=== PATIENT | female | born 1960 | race Caucasian/White ===

== ENCOUNTER 2020-08-14 07:20 | Day surgery (SDC) | payer MEDICARE, MEDICAID, SELFPAY ==
[2020-08-08 14:08] VITALS: BMI 48.5
--- NOTE | 2020-08-11 07:24 | HO.ANESPROP2 ---
Documented by User: Mavis Key 08/11/20 07:25 HPI - Anesthesia Eval Consult details Narrative: 60yo F for Colonoscopy xarelto for afib PMFSH Past Medical History Medical History Arrhythmia Arthritis COPD (chronic obstructive pulmonary disease) Depression DVT (deep venous thrombosis) Elevated cholesterol GERD (gastroesophageal reflux disease) History of cardioversion HTN (hypertension) Mild cervical atypia On anticoagulant therapy Pulmonary embolism Sleep apnea Thyroid disease Surgical History Surgical History History of bladder suspension procedure History of bunionectomy History of esophagogastroduodenoscopy (EGD) Hx of laparoscopy Hx of tonsillectomy Social History Social History Are you a primary respiratory care assistant to a significant other at home: No Do you presently have visiting nurse or other home services: No Smoking Status: Current every day smoker Cigarettes Per Day: 3 Years Smoked: 45 Smoked in Last 30 Days: Yes Use of substances other than those prescribed or required for medical reasons: No Have you been hit, kicked, punched, or otherwise hurt by someone within the past year? If so, by whom?: No Advance Directives Information Provided: No Recently lost weight without trying: No Meds Allergies Allergy/AdvReac Type Severity Reaction Status Date / Time latex Allergy Intermediate Itching Verified 08/08/20 14:17 codeine Allergy Unknown Unknown Verified 08/08/20 14:17 Iodinated Contrast Media Allergy Unknown Unknown Verified 08/08/20 14:17 [IV Contrast Dye] Home Medications Medication Instructions Recorded Confirmed Last Taken Type atorvastatin 1 tab PO BEDTIME 08/08/20 08/08/20 Unknown History cholecalciferol (vitamin D3) 25 mcg PO DAILY 08/08/20 08/08/20 Unknown History [Vitamin D3] diltiazem HCl 1 cap PO DAILY 08/08/20 08/08/20 08/14/20 04:30 History esomeprazole magnesium [Nexium] 20 mg PO BEDTIME 08/08/20 08/08/20 Unknown History fluoxetine 1 cap PO DAILY 08/08/20 08/08/20 08/14/20 04:30 History furosemide 20 mg PO DAILY PRN 08/08/20 08/08/20 Unknown History latanoprost 1 drp OPHTHALMIC (EYE) BEDTIME 08/08/20 08/08/20 Unknown History levothyroxine 1 tab PO DAILY 08/08/20 08/08/20 08/14/20 04:30 History lisinopril 20 mg PO DAILY 08/08/20 08/08/20 Unknown History lorazepam 1 tab PO BID PRN 08/08/20 08/08/20 Unknown History quetiapine 1 tab PO BEDTIME 08/08/20 08/08/20 Unknown History rivaroxaban [Xarelto] 1 tab PO QAM 08/08/20 08/08/20 Unknown History tolterodine 1 cap PO DAILY 08/08/20 08/08/20 Unknown History trazodone 1 tab PO BEDTIME 08/08/20 08/08/20 Unknown History Exam Exam Date and Time: August 11, 2020723 Height,Weight and Vital Signs: Height 5 ft 4 in Weight 128.367 kg Assessment and Plan Assessment Anesthesia Assessment: Chart Reviewed Documented by User: Dejuan Brewer 08/14/20 08:43 [facility] Past Medical History Medical History Arrhythmia Arthritis COPD (chronic obstructive pulmonary disease) Depression DVT (deep venous thrombosis) Elevated cholesterol GERD (gastroesophageal reflux disease) History of cardioversion HTN (hypertension) Mild cervical atypia On anticoagulant therapy Pulmonary embolism Sleep apnea Thyroid disease Surgical History Surgical History History of bladder suspension procedure History of bunionectomy History of esophagogastroduodenoscopy (EGD) Hx of laparoscopy Hx of tonsillectomy Social History Social History Are you a primary respiratory care assistant to a significant other at home: No Do you presently have visiting nurse or other home services: No Smoking Status: Current every day smoker Cigarettes Per Day: 3 Years Smoked: 45 Smoked in Last 30 Days: Yes Use of substances other than those prescribed or required for medical reasons: No Have you been hit, kicked, punched, or otherwise hurt by someone within the past year? If so, by whom?: No Advance Directives Information Provided: No Recently lost weight without trying: No Meds Allergies Allergy/AdvReac Type Severity Reaction Status Date / Time latex Allergy Intermediate Itching Verified 08/08/20 14:17 codeine Allergy Unknown Unknown Verified 08/08/20 14:17 Iodinated Contrast Media Allergy Unknown Unknown Verified 08/08/20 14:17 [IV Contrast Dye] Home Medications Medication Instructions Recorded Confirmed Last Taken Type atorvastatin 1 tab PO BEDTIME 08/08/20 08/08/20 Unknown History cholecalciferol (vitamin D3) 25 mcg PO DAILY 08/08/20 08/08/20 Unknown History [Vitamin D3] diltiazem HCl 1 cap PO DAILY 08/08/20 08/08/20 08/14/20 04:30 History esomeprazole magnesium [Nexium] 20 mg PO BEDTIME 08/08/20 08/08/20 Unknown History fluoxetine 1 cap PO DAILY 08/08/20 08/08/20 08/14/20 04:30 History furosemide 20 mg PO DAILY PRN 08/08/20 08/08/20 Unknown History latanoprost 1 drp OPHTHALMIC (EYE) BEDTIME 08/08/20 08/08/20 Unknown History levothyroxine 1 tab PO DAILY 08/08/20 08/08/20 08/14/20 04:30 History lisinopril 20 mg PO DAILY 08/08/20 08/08/20 Unknown History lorazepam 1 tab PO BID PRN 08/08/20 08/08/20 Unknown History quetiapine 1 tab PO BEDTIME 08/08/20 08/08/20 Unknown History rivaroxaban [Xarelto] 1 tab PO QAM 08/08/20 08/08/20 Unknown History tolterodine 1 cap PO DAILY 08/08/20 08/08/20 Unknown History trazodone 1 tab PO BEDTIME 08/08/20 08/08/20 Unknown History Exam Airway Mallampati Class: III TM Dist: >3cm Neck ROM: Full Loose/Missing/Broken Teeth: No Heart: [id number] Lungs: cta b/l Assessment and Plan Assessment Anesthesia Assessment: Anesthesia Plan Discussed, PAT Visit and Chart Reviewed Final Anesthetic Review NPO: Yes ASA Class: III Final Preanesthetic Review: No Changes in Pt Med Stat, Meds/Allgs Chart Reviewed, Consent Obtained/Reviewed and Anes Risks/Benef Reviewed Patient Risk: Intermediate Procedure Risk: Low Assessment/Block/Sedation in SS: Assess/Block/Sedation-SS Anesthetic Plan Anesthetic Plan: MAC: and Agree w/ Assess. and Plan Disposition: Standard PACU
[2020-08-14 07:46] VITALS: BP 129/75; PULSE 66; RESP 16; TEMP 36.6; O2SAT 95
[2020-08-14] MEDS: Lactated Ringers 1,000 ML 100 ML IVCONT (08:31)
[2020-08-14 09:29] VITALS: BP 127/73; PULSE 86; RESP 14; TEMP 36.4; O2SAT 98
--- NOTE | 2020-08-14 09:30 | PM.OP ---
Brief Operative Note Date of Service: 08/14/20 Pre-op diagnosis: Screening Post-op diagnosis: other (Diverticulosis, R/O Microscopic colitis) Procedure: Colonoscopy to cecum and TI with biopsies Surgeon: Jose M Schaeffer Anesthesia: MAC Estimated blood loss (mL): 4.0 Pathology: other (A. Terminal ileum B. Ascending colon C. Descending colon) Condition: stable Disposition: PACU
[2020-08-14 09:45] VITALS: BP 144/82; PULSE 80; RESP 17; TEMP 36.4; O2SAT 97
--- NOTE | 2020-08-14 10:16 | OP_ITS ---
SURGEON: Jose M Schaeffer MD INDICATIONS: The patient presents for evaluation of colorectal cancer screening and intermittent diarrhea. Full consent has been obtained from her for this, including risks of bleeding and perforation. PREOPERATIVE DIAGNOSIS: POSTOPERATIVE DIAGNOSIS: PROCEDURE PERFORMED: Colonoscopy to cecum and terminal ileum with biopsies. ESTIMATED BLOOD LOSS: COMPLICATIONS: ANESTHESIA: Monitored anesthesia care. ASSISTANTS: SPECIMENS: PREOPERATIVE DIAGNOSES: Diarrhea and colorectal cancer screening. POSTOPERATIVE DIAGNOSES: Diarrhea and colorectal cancer screening, rule out microscopic colitis, diverticulosis, and internal hemorrhoids. DESCRIPTION OF PROCEDURE: The patient was placed in the left lateral decubitus position. The digital rectal exam revealed no abnormalities. The Olympus video pediatric colonoscope was entered into the rectum and advanced easily to the cecum. Once in the cecum, I did identify normal-appearing cecal pouch with appendiceal orifice and a normal-appearing ileocecal valve. The terminal ileum was cannulated and appeared normal. Biopsies were obtained from the terminal ileum. The scope was withdrawn back in the colon. The entire cecum and ileocecal valve appeared normal. The scope was slowly withdrawn assessing all mucosal surfaces carefully. Preparation was excellent. I did not visualize any sign of polyps, colitis, nor angiodysplasia. There was a mild amount of sigmoid diverticulosis. I did obtain random biopsies in the ascending and descending colon. In the rectum, scope was retroflexed visualizing internal hemorrhoids, but no other pathology. The rectal mucosa appeared normal. The scope was straightened out and withdrawn from the patient. She tolerated the procedure well and was returned to the recovery area in stable condition. IMPRESSION: 1. Rule out microscopic colitis. 2. Sigmoid diverticulosis. 3. Internal hemorrhoids. PLAN: The results of biopsies will be checked. She will use dicyclomine as needed for any irritable bowel type symptoms. She can use Imodium as needed for any diarrhea as well. She was advised to resume her Xarelto tomorrow. Given the otherwise negative exam and no family history of colorectal cancer, I would recommend a repeat colonoscopy in 10 years for further screening. MD YELENA Mccracken/KELSEY / [id number]
== END 2020-08-14 10:07 | disposition home or self-care (01) ==
PROVIDERS: PCP Family Medicine; Visit Provider Internal Medicine
PROC: 0DJD8ZZ Inspection of Lower Intestinal Tract, Via Natural or Artificial Opening Endoscopic (ICD-10-PCS; CPT 45378; principal; 2020-08-14 08:40)
DX: Z12.11 Encounter for screening for malignant neoplasm of colon (principal); K52.9 Noninfective gastroenteritis and colitis, unspecified; K57.30 Diverticulosis of large intestine without perforation or abscess without bleeding; K64.8 Other hemorrhoids; K21.9 Gastro-esophageal reflux disease without esophagitis; J44.9 Chronic obstructive pulmonary disease, unspecified; I10 Essential (primary) hypertension; I48.91 Unspecified atrial fibrillation; Z79.01 Long term (current) use of anticoagulants; Z86.718 Personal history of other venous thrombosis and embolism; Z86.711 Personal history of pulmonary embolism; F17.210 Nicotine dependence, cigarettes, uncomplicated; Z91.040 Latex allergy status; Z91.041 Radiographic dye allergy status; Z88.8 Allergy status to other drugs, medicaments and biological substances; Z79.899 Other long term (current) drug therapy
CPT/HCPCS: 45380; 88305; J2250